=== PATIENT | male | born 1960 | race African-American/Black ===

== ENCOUNTER 2018-12-18 01:21 | Emergency (ER) | payer SELFPAY ==
[~2018-12-18] VITALS: Ht 172.7 cm; Wt 81.6 kg
[2018-12-18 04:56] VITALS: BP 139/90
== END 2018-12-18 05:19 | disposition home or self-care (01) ==
LOC: ER 01:24
DX: M25.561 Pain in right knee (principal)
CPT/HCPCS: 73562